=== PATIENT | female | born 1945 | race Caucasian/White ===

== ENCOUNTER 2016-07-11 05:55 | Day surgery (SDC) | payer MEDICARE, OTHER ==
[2016-07-11] MEDS ORDERED: Lactated Ringers 1,000 ML IV SCH (06:30)
[2016-07-11] MEDS ORDERED: Ketamine HCl 50 MG/ML IJ ONE (08:00)
[2016-07-11 08:40] VITALS: O2SAT 99
--- NOTE | 2016-07-11 09:36 | OP ---
SURGERY DATE/TIME: 07/11/2016711 PREOPERATIVE DIAGNOSIS: Diarrhea and abdominal pain. POSTOPERATIVE DIAGNOSIS: Rectosigmoid polyp. PROCEDURE: Colonoscopy with polypectomy. SURGEON: Dr. Go. ANESTHESIA: Medications were given by the anesthesia department. HISTORY: The patient is a 70 year old white female presenting now for first colonoscopy. The patient reports that she has been having problems with diarrhea and abdominal pain particularly after eating a meal. The patient has previously had cholecystectomy. She has never had a colonoscopy performed previously. The patient was felt the need to have endoscopic evaluation. She was appraised of the risks of the procedure including the risk of perforation, phlebitis, untoward reaction to medication, bleeding or missed lesions. The patient verbalized her understanding and desired to have the procedure performed. DESCRIPTION OF PROCEDURE: The patient was given the medications by the anesthesia department. She had continuous pulse oximetry, ECG monitoring, intermittent blood pressure monitoring and tidal CO2 monitoring during the examination. She was placed in left lateral decubitus position. A digital rectal examination was performed and revealed normal anal sphincter tone and no masses. The flexible Olympus pediatric colonoscope was used to intubate the rectum. A view of the colon was developed sequentially to the cecum. Upon insertion and withdrawal, including a retroflex view in the rectum there was noted one polyp measuring approximately 1 cm in diameter in the rectosigmoid area and this was destroyed using multiple passes with hot biopsy forceps. Upon insertion and withdrawal including retroflex view in the rectum, no other mucosal lesions being encountered. The scope was removed from the patient who tolerated the procedure well and was sent back to OP recovery in good condition. The prep was noted to be good.
[2016-07-11] MEDS ORDERED: DIPRIVAN 200 MG/20 ML IV ONE (09:37)
[2016-07-11 09:50] VITALS: BP 140/77; PULSE 86
== END 2016-07-11 09:10 | disposition home or self-care (01) ==
LOC: SDC 05:55
PROVIDERS: ATTEND Family Medicine
PROC: 0DBP8ZX Excision of Rectum, Via Natural or Artificial Opening Endoscopic, Diagnostic (ICD-10-PCS; principal; 2016-07-11)
DX: K62.1 Rectal polyp (principal); R10.9 Unspecified abdominal pain; R19.7 Diarrhea, unspecified
CPT/HCPCS: 00810; 36415; 88305; J2704

== ENCOUNTER 2024-06-15 14:45 | Day surgery (SDC) | payer MEDICARE ==
[2024-06-15] MEDS ORDERED: dexAMETHasone sodium phosphate IJ ONE (14:46)
[2024-06-15] MEDS ORDERED: LIDOCAINE HCL 1% AMPUL 5 ML IJ ONE (14:46)
[2024-06-15] MEDS ORDERED: Sodium Chloride 0.9(Preservative Free) 10 ML IJ ONE (14:46)
[2024-06-15] MEDS ORDERED: Lactated Ringers 500 ML IV ONE (15:07)
[2024-06-15] MEDS ORDERED: Sodium Chloride 0.9% 250 ML 250 ML IV ONE (15:09)
--- NOTE | 2024-06-15 18:28 | XRAY ---
Indication: Cervical GREG. Intraoperative fluoroscopy provided for 14 seconds. 3 digital spot image submitted for interpretation demonstrates needle tip projecting posterior to cervicothoracic junction. Small amount of contrast injected for needle tip placement. Correlate with intraoperative findings/report.
--- NOTE | 2024-06-16 08:53 | XRAY ---
14 seconds of fluoroscopy used in surgery for a cervical GREG.
== END 2024-06-15 16:45 | disposition home or self-care (01) ==
LOC: SDC-PAIN 14:45
PROVIDERS: ATTEND Psychiatry & Neurology Pain Medicine
DX: M54.12 Radiculopathy, cervical region (principal)
CPT/HCPCS: 62321; 72040; J1100; Q9966